=== PATIENT | male | born 1950 | race Caucasian/White ===

== ENCOUNTER 2021-08-21 07:32 | Observation (INO) ==
--- NOTE | 2021-07-07 17:37 | PAT Medication Instructions ---
Medication Instructions Date of Service July 07, 2021 Home Medications aspirin 81 mg tablet,delayed release (Adult Low Dose Aspirin) 81 mg PO QAM hydrochlorothiazide 25 mg tablet 12.5 mg PO QAM rivaroxaban 10 mg tablet (Xarelto) 10 mg PO QAM trazodone 50 mg tablet 50 mg PO HS acetaminophen 500 mg capsule 1,000 mg PO Q8H PRN gabapentin 300 mg capsule 300 mg PO UD mirtazapine 30 mg tablet 30 mg PO HS omeprazole 20 mg capsule,delayed release 20 mg PO QAM simvastatin 40 mg tablet 40 mg PO HS travoprost 0.004 % eye drops (Travatan Z) 1 drp OPB PM valsartan 80 mg capsule 80 mg PO QAM Continue as directed gabapentin 300 mg capsule 300 mg PO UD ASK your prescriber and surgeon rivaroxaban 10 mg tablet (Xarelto) 10 mg PO QAM DO NOT take the morning of surgery hydrochlorothiazide 25 mg tablet 12.5 mg PO QAM valsartan 80 mg capsule 80 mg PO QAM Take morning of surgery With a small sip of water, OTHERWISE NOTHING TO EAT OR DRINK AFTER MIDNIGHT: aspirin 81 mg tablet,delayed release (Adult Low Dose Aspirin) 81 mg PO QAM (unless surgeon directed otherwise) acetaminophen 500 mg capsule 1,000 mg PO Q8H PRN(okay to take up to 4 hours prior to surgery if needed) omeprazole 20 mg capsule,delayed release 20 mg PO QAM Take evening before surgery trazodone 50 mg tablet 50 mg PO HS acetaminophen 500 mg capsule 1,000 mg PO Q8H PRN(if needed) mirtazapine 30 mg tablet 30 mg PO HS simvastatin 40 mg tablet 40 mg PO HS travoprost 0.004 % eye drops (Travatan Z) 1 drp OPB PM Other Notes If you have any questions please call us at [phone] or [phone] or [phone] or [phone]
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
[~2021-08-21 07:32] MED LIST: ACETAMINOPHEN 500 MG TAB PO SCH; BUPIVACAINE 0.5 % 5 MG/1 ML MPF 30ML VIAL ONE; FAMOTIDINE 20 MG TAB PO SCH; GABAPENTIN 300 MG CAP PO SCH; Ketorolac (*for OR use only*) 30 MG, dexAMETHasone 4 MG, KETAMINE HCL (**OR use only) 1... INFIL SCH; LR 15ML/HR IV SCH; LR 60ML/HR IV SCH; TRANEXAMIC ACID 1,000 MG **IV Intra-op IV SCH; TRANEXAMIC ACID 1,000 MG **IV Pre-op IV SCH; ceFAZolin 2000MG 2,000 MG/15 ML SYR IV SCH; dexAMETHasone 4 MG TAB PO SCH
[2021-08-21] MEDS ORDERED: MIDAZOLAM HCL 1 MG/ML 2ML VIAL ONE (08:41)
[2021-08-21] MEDS ORDERED: KETAMINE 50 MG/5 ML SYRINGE ONE (08:41)
[2021-08-21] MEDS ORDERED: fentaNYL citrate 100 MCG/2 ML VIAL ONE (08:41)
--- NOTE | 2021-08-21 09:24 | History & Physical Bridge Note ---
Date of Service August 21, 2021 History & Physical Bridge Note I have examined the patient, reviewed the History & Physical and in the interval since the performance of the History & Physical I have noted the following changes of clinical significance: no changes noted
[2021-08-21] MEDS ORDERED: ePHEDrine sulfate 50 MG/ML AMP IV PRN (09:44)
[2021-08-21] MEDS ORDERED: ONDANSETRON INJ 2 MG/ML 2 ML VIAL IV PRN ×2 (09:44→13:38)
[2021-08-21] MEDS ORDERED: ATROPINE SULFATE 0.1 MG/ML 10ML SYR IV PRN (09:44)
[2021-08-21] MEDS ORDERED: fentaNYL citrate 100 MCG/2 ML VIAL IV PRN (09:44)
[2021-08-21] MEDS ORDERED: ORTHO JOINT ANESTHETIC ONE (10:11)
[2021-08-21] MEDS ORDERED: GLYCOPYRROLATE 0.2 MG/ML VIAL ONE (10:40)
[2021-08-21] MEDS ORDERED: ONDANSETRON INJ 2 MG/ML 2 ML VIAL ONE (10:40)
[2021-08-21] MEDS ORDERED: KETOROLAC 30 MG/ML VIAL ONE (10:40)
[2021-08-21] MEDS ORDERED: DEXAMETHASONE SOD INJ 4 MG/ML VIAL ONE (10:40)
[2021-08-21] MEDS ORDERED: LIDOCAINE 2% 2 ML VIAL/AMP(20MG/ML) INFIL ONE (10:40)
[2021-08-21] MEDS ORDERED: PROPOFOL IV EMULSION 10 MG/ML 20 ML VIAL IV ONE (10:40)
[2021-08-21] MEDS ORDERED: PHENYLEPHRINE HCL 10 MG/ML VIAL ONE (10:42)
[2021-08-21] MEDS ORDERED: PHENYLEPHRINE 100MCG/ML 5ML SYR ONE (11:21)
--- NOTE | 2021-08-21 11:47 | Operative Report ---
PG Post Operative Report Pre & Post Diagnosis Operation Date: 08/21/21 10:25 Pre-Op Diagnosis: Degenerative Joint Disease Left Shoulder with tendinopathy long head of the biceps tendon Post-Op Diagnosis: Degenerative Joint Disease Left Shoulder with tendinopathy of the long head of biceps tendon I identified the patient and participated in the time-out.: Yes Procedure Operation Date: 08/21/21 10:25 Actual Procedures p Left Reverse Total Shoulder Arthroplasty with open biceps tenodesis as a distinct and separate procedure (modifier 59) - Moises Rojas DO Surgeon Moises Rojas, Engine Repairer Moises Nguyen PAC Estimated Blood Loss 200 Findings Consistent with Post-Op Diagnosis Specimens Left humeral head Complications none Disposition Disposition: Recovery Room Indications Yovani is a pleasant 71-year-old male who is been dealing with chronic increasing left shoulder pain. X-rays and clinical examination were diagnostic for cuff arthropathy of the left shoulder. After failing conservative treatment, he elected proceed with a left reverse shoulder arthroplasty. Description of Procedure A CPT code modifier 59: The long head of the biceps tendon was enlarged and inflamed consistent with tendinopathy. A tenodesis was opted. This was a separate and distinct portion of the procedure. For these reasons, a CPT code modifier 59 will be added to this case. Implants used: I used a [employer]omet Comprehensive reverse total shoulder arthroplasty system with a size 12 press fit micro humeral stem, a standard humeral tray and a standard humeral bearing, a 25 mm small augment baseplate with a 6.5 mm central screw and superior and inferior locking screws, and a size 40 eccentric glenosphere. Yovani arrived at [facility] for the above procedure. He was seen in the preoperative holding area and the operative extremity was identified and signed. He was given a preoperative antibiotic, TXA, and an interscalene nerve block. He was taken back to the operating room, laid on table in supine position, and put under general anesthesia. He was then put into the beachchair position. The shoulder was then prepped and draped in sterile fashion. A timeout was done and the patient and the operative extremity was properly identified. A deltopectoral approach was used. Dissection was taken down through the fascia and the deltoid was retracted laterally and the conjoined tendon was retracted medially. The anterior shoulder was exposed. The biceps groove was opened up and the biceps tendon was examined extensively. The biceps tendon demonstrated enlargement and inflammatory changes consistent with longstanding inflammation in the context of osteoarthritis and cuff arthropathy. The long head of the biceps tendon was then tenodesed to the upper border of the pectoralis major. This was a separate and distinct portion of the procedure. The subscapularis was then directly released off the lesser tuberosity with a peel technique. The inferior capsule was released and the humeral head was dislocated. A canal finding reamer was sent down the center of the humeral canal. Sequential reaming up to a size 12 reamer was done. Off that reamer, a proximal humeral resection guide was placed. The proximal humerus was resected at 135 of inclination and 25 of retroversion. Osteophytes were then removed and the glenoid was exposed. Time was spent doing a complete capsular and labral release. The glenoid guide was then placed in the inferior aspect of the glenoid. A 3.2 mm Steinmann pin was then placed into the glenoid vault at 10 of inclination. The glenoid baseplate was then reamed. The final size 25 mm small augment baseplate was then impacted in the place. A 6.5 mm central screw was then placed followed by superior and inferior locking screws. A 40 eccentric glenosphere was then impacted into place. Surrounding soft tissues were then injected with 100 cc an orthopedic pain control cocktail. The proximal humerus was then exposed. Sequential broaching of the humerus up to a size 12 broach was done. Off that broach a standard humeral tray was trialed. The shoulder was then reduced, brought through a full range of motion, and felt to be stable. The shoulder was then dislocated and the broach was removed. The final size 12 micro press-fit humeral stem was then impacted into place. A standard humeral bearing was then snapped onto a standard humeral tray. The humeral tray was then impacted onto the humeral stem. The shoulder was once again reduced, brought through a full range of motion, and felt to be stable. The subscapularis was then tenodesed back to the lesser tuberosity with transosseous FiberWire sutures and side to side sutures with the arm in 45 of external rotation. A dilute betadyne lavage was then done for 3 minutes. The joint was then irrigated with normal saline solution. Hemostasis was obtained. The interval was closed with 2-0 Vicryl suture. The skin was then closed with 2-0 Vicryl and marshall. A Silverlon dressing was placed and the arm was rested in a regular arm sling. He was then extubated and transferred to a hospital bed. He taken to the postanesthesia care unit in stable condition. He tolerated the procedure well. Moises Nguyen PA-C, was present for the entire procedure. He was critical for patient positioning, prepping, draping, retraction exposure, wound closure and application of sterile dressing. I attest to the content of the Intraoperative Record and any orders documented therein. Any exceptions are noted below.
--- NOTE | 2021-08-21 12:36 | XRay Report ---
XR shoulder LT min 2V routine CLINICAL HISTORY: Post shoulder surgery. Status post shoulder replacement COMPARISON STUDY: No previous studies for comparison. TECHNIQUE: 2 left shoulder views FINDINGS: The patient is status post total shoulder replacement with humeral head and glenoid compone nts. The prosthetic components are in anatomic alignment with no acute abnormality identified. IMPRESSION: 1. Status post total shoulder replacement. ACT 112: Negative or not required by law. Electronically signed by: Dipesh Strickland M.D. 08/21/2021 12:35 PM
[2021-08-21] MEDS ORDERED: hydrALAZINE HCL 20 MG/ML VIAL IV STA (12:42)
[2021-08-21] MEDS ORDERED: hydrALAZINE HCL 20 MG/ML VIAL ONE (12:43)
--- NOTE | 2021-08-21 13:06 | Anesthesiology Progress Note ---
Date of Service August 21, 2021 Anesthesia Post Procedure Vital Signs Vital Signs: Temp Pulse Pulse Resp BP Pulse Ox 08/21/21 13:00 97.2 F L 60 16 168/87 H 97 08/21/21 12:50 60 16 182/73 H 95 08/21/21 12:40 60 12 199/108 H 96 08/21/21 12:30 82 15 190/97 H 100 08/21/21 12:20 75 16 137/87 100 08/21/21 12:10 75 19 125/83 100 08/21/21 12:04 96.8 F L 75 17 108/74 100 08/21/21 08:19 97.9 F 75 22 151/80 H 96 Transfer of Care Handoff Completed per policy Notes Mental Status: alert / awake / arousable and participated in evaluation Patient Amnestic to Procedure: Yes Nausea / Vomiting: adequately controlled Pain: adequately controlled Airway Patency, RR, SpO2: stable & adequate BP & HR: stable & adequate Hydration State: stable & adequate Anesthetic Complications: no major complications apparent and Pt Satisfied with anesthetic care
[2021-08-21] MEDS ORDERED: NALOXONE HCL 0.4 MG/1 ML VIAL/CARP IV PRN (13:38)
[2021-08-21] MEDS ORDERED: MAGNESIUM HYDROXIDE SUSP 30 ML UDC PO PRN (13:38)
[2021-08-21] MEDS ORDERED: oxyCODONE HCL IR 5 MG TAB (IMMEDIATE RELEASE) PO PRN (13:38)
[2021-08-21] MEDS ORDERED: bisacodyL 10 MG SUPP PR PRN (13:38)
[2021-08-21] MEDS ORDERED: METOCLOPRAMIDE HCL INJ 5 MG/ML 2 ML VIAL IV PRN (13:38)
[2021-08-21] MEDS ORDERED: HYDROmorphone INJ 0.5 MG/0.5 ML SYR IV PRN (13:38)
[2021-08-21] MEDS: ACETAMINOPHEN 500 MG TAB PO SCH ×2 (16:29→21:58)
[2021-08-21] MEDS: SODIUM CHLORIDE 0.9% 1000ML 1,000 ML IV SCH (16:30)
[2021-08-21] MEDS: ceFAZolin 2000MG 2,000 MG/15 ML SYR IV SCH (17:32)
[2021-08-21] MEDS ORDERED: TRAVOPROST Z 0.004% OPH SOLN 2.5 ML BTL OPB SCH (21:00)
[2021-08-21] MEDS ORDERED: traZODone HCL 50 MG TAB PO SCH (21:00)
[2021-08-21] MEDS ORDERED: MIRTAZAPINE TAB 15 MG TAB PO SCH (21:00)
[2021-08-21] MEDS ORDERED: SENNA 8.6 MG TAB PO SCH (21:00)
[2021-08-21] MEDS ORDERED: SIMVASTATIN 40 MG TAB PO SCH (21:00)
[2021-08-21] MEDS ORDERED: GABAPENTIN 300 MG CAP PO SCH (21:00)
[2021-08-21] MEDS: DOCUSATE SODIUM 100 MG CAP PO SCH (21:56)
[2021-08-22] MEDS: ceFAZolin 2000MG 2,000 MG/15 ML SYR IV SCH (02:44)
[2021-08-22] MEDS: SODIUM CHLORIDE 0.9% 1000ML 1,000 ML IV SCH (02:46)
[2021-08-22] MEDS: ACETAMINOPHEN 500 MG TAB PO SCH (05:29)
[2021-08-22 06:27] LABS: Creatinine Clr Calc Pharmacy 46.3 ml/min; Est GFR (African American) 53.6 ml/min; Est GFR (Non-African American) 46.2 ml/min
[2021-08-22] MEDS ORDERED: dexAMETHasone 4 MG TAB PO SCH (08:00)
[2021-08-22] MEDS: DOCUSATE SODIUM 100 MG CAP PO SCH (08:03)
[2021-08-22] MEDS ORDERED: PANTOprazole 40 MG TAB PO SCH (09:00)
[2021-08-22] MEDS ORDERED: MULTIVITAMIN TAB PO SCH (09:00)
[2021-08-22] MEDS ORDERED: RIVAROXABAN 10 MG TABLET PO SCH (09:00)
[2021-08-22] MEDS ORDERED: VALSARTAN 80 MG TAB PO SCH (09:00)
[2021-08-22] MEDS ORDERED: ASPIRIN 81 MG ECTAB PO SCH (09:00)
[2021-08-22] MEDS ORDERED: hydroCHLOROthiazide 25 MG TAB PO SCH (09:00)
[2021-08-22] MEDS ORDERED: GABAPENTIN 300 MG CAP PO SCH (09:00)
--- NOTE | 2021-08-22 09:00 | Orthopedic Progress Note ---
Date of Service August 22, 2021 Assessment & Plan (1) Status post reverse total replacement of left shoulder: Overall is doing fairly well. Is not having much pain in the left shoulder. He will be seen by physical therapy today for ambulation and and range of motion exercises. He can be discharged home later today. He will follow-up with orthopedics in 2 weeks. Ashley Pina was seen and examined at bedside this morning. Overall is doing very well. Is not having much pain in the left shoulder. He was able to get some sleep last night. He has no complaints. Review of Systems All systems reviewed & are unremarkable except as noted in HPI & below. Physical Exam On physical examination of the left shoulder, the dressing is clean and dry. He is wearing his sling as instructed. He has active dorsiflexion of his wrist. Results & Data Results & Data Laboratory Results . Diagnostic Findings Postoperative x-rays of the left shoulder show the prosthesis to be in anatomic alignment without any evidence of fracture, dislocation, or loosening PG Care Time/CCT Total # of Minutes Spent Total Time Spent with Patient: Total time spent is greater than 50% in coordination of care (as documented) at patient's floor/unit and/or counseling patient: Coding Level of Care Code 31566 Post Operative Follow-Up Diagnoses Status post reverse total replacement of left shoulder Z96.612
--- NOTE | 2021-08-22 09:01 | Discharge Summary ---
Date of Service August 22, 2021 Admission HPI (Per Admitting) Yovani is a pleasant 71-year-old male who is been dealing with chronic increasing left shoulder pain. 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 After failing years of conservative treatment, he elected proceed with a left reverse shoulder arthroplasty. Admission Exam (Per Admitting) On physical examination of the left shoulder, he has decreased range of motion. He has weakness throughout. He has pain over the glenohumeral joint line. Principal Diagnosis Same as "Discharge Diagnosis" noted below under Discharge Instructions. Discharge Exam On physical examination of the left shoulder, the dressing is clean and dry. He is wearing his sling as instructed. He has active dorsiflexion of his wrist. Discharge Data Procedures Performed Operation Date: 08/21/21 10:25 Actual Procedures p Left Reverse Total Shoulder Arthroplasty(Left) - Moises Rojas DO Ordered Studies 08/21/21 05:00 US - OR guided needle placemen Routine Hospital Course (1) Status post reverse total replacement of left shoulder: On August 21, 2021 Yovani arrived at [facility] and underwent a left reverse shoulder arthroplasty without complication. He had a general anesthetic and a left interscalene nerve block. Postoperatively he was placed in a sling and transferred to the general orthopedic floors. His hospital course was uneventful. On postop day #1 his vital signs were stable and his pain was well controlled. He was able to participate well with physical therapy doing ambulation and range of motion exercises. He was then discharged home. He will follow-up with orthopedics in 2 weeks. PG Care Time/CCT Total # of Minutes Spent Total Time Spent with Patient: Total time spent is greater than 50% in coordination of care (as documented) at patient's floor/unit and/or counseling patient: Discharge Plan Discharge Items Patient Disposition: Home - Home Health Services Reason For Visit: DJD Left Shoulder Discharge Diagnosis: Left reverse shoulder replacement Activity: Per Instructions section Non-emergency contact: Surgeon Call non-emergency contact if: your wound has increased redness and your wound h as increased drainage Follow-up/Referrals: Marisol Ca M.D. [Primary Care Provider] - Diet: Regular Addtl Attending Provider Instructions: Activity and Therapy Recommendations: * If you are using [facility] then therapy will be provided at your home until they feel you have accomplished all of your goals. * If you are using [facility] then Physical Therapy will be provided until they feel you are ready to start Outpatient Physical Therapy. * If you are not using home therapy then Outpatient Physical Therapy should start about 3-5 days from your day of surgery. Therapy will last about 8-12 weeks * Wear your sling for 3 weeks, unless otherwise instructed. You may remove your sling to shower and to dress, but otherwise, you should be in your sling at all times, including while sleeping * The shoulder replacement is very stable and you can use your hand while in the sling * You were shown a series of exercises in the hospital. Do these exercises daily including the exercises you were shown in physical therapy. Medications: * Narcotic You will likely be sent home from the hospital with a prescription for the narcotic pain medication that worked best throughout your stay. * Other medications may be prescribed for specific circumstances. If you have any questions, please call the office at . * Resume previous home medications unless otherwise instructed Dressing Care: Leave the Silverlon dressing in place for 7 days. After 7 days you may remove the dressing. If the incision is not draining then you may leave the marshall open to air. If there is a little bit of drainage or if the marshall are getting stuck on your clothing then cover the incision with a dry dressing. The marshall will be removed at your 2 week follow-up appointment. Showering: You may shower with the Silverlon dressing in place. Do not let the shower spray hit the dressing directly. Pat the Silverlon dressing dry. If the dressing becomes wet underneath, then simply remove the dressing. Keep the incision dry until you are 7 days out from the day of surgery. After 7 days you may remove the Silverlon dressing and shower with the marshall exposed. Let soapy water run over the marshall and pat them dry. Do not scrub or soak the incision. Things To Watch For: * Drainage from the incision site that occurs more than one week after your surgery. * Increased redness at the incision site. * Fever above 102 degrees Fahrenheit. * Unusual chest pain or shortness of breath. * Call [facility] at with any of the above problems Follow-Up Visit: Follow-up with Dr. Rojas's PA (Moises Nguyen) 2-3 weeks after your day of surgery. He will remove your marshall and answer any questions. If you have any additional questions or concerns, Dr Rojas is usually in the office at the same time and will be available An appointment was probably scheduled when you signed-up for surgery in the office. If you have any questions call More detailed instructions as well as Frequently Asked Questions were provided in a folder by our office when you signed-up for surgery. Please review these instructions when you get home. If you have any further questions or concerns, please feel free to call the office at [phone] Pending Studies at Discharge: No Stand-Alone Forms: My [facility] Medications and DC Order Prescriptions: New oxycodone-acetaminophen 5-325 mg tablet 1 tab PO Q6H PRN (Reason: pain) Qty: 30 RF: 0 Continued aspirin [Adult Low Dose Aspirin] 81 mg tablet,delayed release (DR/EC) 81 mg PO QAM RF: 0 hydrochlorothiazide 25 mg tablet 12.5 mg PO QAM RF: 0 trazodone 50 mg tablet 50 mg PO HS RF: 0 Xarelto 10 mg tablet 10 mg PO QAM RF: 0 simvastatin 40 mg Tablet 40 mg PO HS RF: 0 valsartan 80 mg Capsule 80 mg PO QAM RF: 0 gabapentin 300 mg Capsule 300 mg PO UD RF: 0 omeprazole 20 mg Capsule,Delayed Release(Dr/Ec) 20 mg PO QAM RF: 0 acetaminophen 500 mg Capsule 1,000 mg PO Q8H PRN (Reason: Pain) RF: 0 mirtazapine 30 mg Tablet 30 mg PO HS RF: 0 travoprost [Travatan Z] 0.004 % Drops 1 drp OPB PM RF: 0 Discharge Orders: Discharge Order (Routine); Ordered 08/22/21 Ordered By: Moises Rojas Admission Data Admit Date/Time: 08/21/21 12:07 Attending Provider: Moises Rojas Admit Provider: Moises Rojas Primary Care Provider: Marisol Ca
== END 2021-08-22 12:17 | disposition home health service (06) ==
LOC: 3E 07:32 → ASU 07:32

== ENCOUNTER 2022-02-19 07:56 | Observation (INO) ==
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
[~2022-02-19 07:56] MED LIST changes: -BUPIVACAINE 0.5 % 5 MG/1 ML MPF 30ML VIAL ONE; +BUPIVACAINE 0.5 % 5 MG/1 ML PF 10ML VIAL ONE; -LR 15ML/HR IV SCH; +LR 500ML BOLUS, THEN 15ML/HR IV SCH; +ROPIVACAINE 0.5% 5 MG/ML 30 ML VIAL ONE
[2022-02-19] MEDS ORDERED: fentaNYL citrate 100 MCG/2 ML VIAL ONE (09:03)
[2022-02-19] MEDS ORDERED: MIDAZOLAM HCL 1 MG/ML 2ML VIAL ONE (09:03)
--- NOTE | 2022-02-19 09:56 | History & Physical Bridge Note ---
Date of Service February 19, 2022 History & Physical Bridge Note I have examined the patient, reviewed the History & Physical and in the interval since the performance of the History & Physical I have noted the following changes of clinical significance: no changes noted
[2022-02-19] MEDS ORDERED: ONDANSETRON INJ 2 MG/ML 2 ML VIAL IV PRN ×2 (10:21→14:21)
[2022-02-19] MEDS ORDERED: fentaNYL citrate 100 MCG/2 ML VIAL IV PRN (10:21)
[2022-02-19] MEDS ORDERED: ATROPINE SULFATE 0.1 MG/ML 10ML SYR IV PRN (10:21)
[2022-02-19] MEDS ORDERED: ePHEDrine sulfate 50 MG/ML AMP IV PRN (10:21)
[2022-02-19] MEDS ORDERED: ORTHO JOINT ANESTHETIC ONE (10:27)
[2022-02-19] MEDS ORDERED: PROPOFOL IV EMULSION 10 MG/ML 20 ML VIAL IV ONE (11:47)
[2022-02-19] MEDS ORDERED: ONDANSETRON INJ 2 MG/ML 2 ML VIAL ONE (11:47)
[2022-02-19] MEDS ORDERED: LIDOCAINE 2% MPF LOCAL 5 ML VIAL INFIL ONE (11:47)
--- NOTE | 2022-02-19 12:13 | Operative Report ---
PG Post Operative Report Pre & Post Diagnosis Operation Date: 02/19/22 10:25 Pre-Op Diagnosis: Degenerative joint disease left knee. Post-Op Diagnosis: Degenerative joint disease left knee. I identified the patient and participated in the time-out.: Yes Procedure Operation Date: 02/19/22 10:25 Actual Procedures p Left Total Knee Arthroplasty(Left) - Moises Rojas DO Surgeon Moises Rojas DO Chip Machine Operator Moises Nguyen PA-C Estimated Blood Loss 100 Findings Consistent with Post-Op Diagnosis Specimens Left femoral and tibial bone Description of Procedure Implants used: I used a [employer] Person[employer] total knee arthroplasty system with a size 10 standard femur, E tibia, 34 oval patella, and a size 11 medial congruent polyethylene bearing. All components were cemented in place with Biomet cement. Yovani paco [facility] for the above procedure. He was seen in the preoperative holding area and the operative extremity was identified and signed. He was given a preoperative antibiotic, TXA, a spinal anesthetic and an adductor nerve block. He was taken back to the operating room and laid on the table in supine position. He was given basic sedation. The operative knee was then prepped and draped in sterile fashion. A timeout was done, and the patient and the operative extremity was properly identified. A midline incision was made directly over the patella. Dissection was taken down to the extensor mechanism. A subvastus arthrotomy was used. The medial retinaculum was released and the fat pad was mostly excised. The knee was flexed and the ACL, PCL, and meniscus were removed. A drill was sent down the center of the femoral canal followed by an intramedullary jeremi. Off that jeremi a distal femoral cutting block was placed. 9 mm was resected off the distal femur at 5 of valgus. A posterior referencing AP sizing guide was then placed on the distal femur. The femur measured to be a size 10 standard. 2 drill holes were placed in 3 of external rotation. A 4-in-1 cutting block was then impacted into place. Anterior, posterior, and chamfer cuts were then made. The proximal tibia was then exposed. An external tibial alignment guide was placed. A tibial cut guide was then anchored in place and the proximal tibia was then resected. The posterior aspect of the knee was then opened up and any additional meniscus fragments and osteophytes were removed. The tibia measured to be a size E. The tibial plate was then placed in the appropriate rotation and the tibia was drilled and punched. Trial components were then placed. I used a size 10 medial congruent polyethylene insert. The knee was brought through a full range of motion and felt to be stable. The peg holes for the femoral component were then drilled. The patella was then everted and 9 mm was resected off the posterior aspect of the patella. The patella measured to be a size 34 oval. 3 peg holes were then drilled. A trial patella was placed. The knee was once again brought through a full range of motion and felt to be stable. Trial components were then removed. The surrounding soft tissues were injected with 100 cc of an orthopedic pain control cocktail. All components were then cemented into place with Biomet cement. The final polyethylene insert was then snapped into place. Once cement was dry the tourniquet was deflated. Hemostasis was obtained. A dilute betadyne lavage was then done for 3 minutes. The joint was then irrigated with normal saline solution. The subvastus arthrotomy was then closed with #1 Vicryl suture. The skin was closed with 2-0 Vicryl, 3-0V lock suture, and marshall. A soft compressive dressing was placed. He was then transferred to a hospital bed and taken to the postanesthesia care unit in stable condition. He tolerated the procedure well. Moises Nguyen PA-C, was present for the entire procedure. He was critical for patient positioning, prepping, draping, retraction exposure, wound closure and application of sterile dressing. I attest to the content of the Intraoperative Record and any orders documented therein. Any exceptions are noted below.
--- NOTE | 2022-02-19 12:58 | XRay Report ---
LEFT KNEE 2 VIEWS History: Left total knee arthroplasty. Degenerative arthritis. Postop. FINDINGS: The patient is status post a left total knee arthroplasty. The hardware is intact. No fract ure or dislocation. Skin marshall are in place. IMPRESSION: Left total knee arthroplasty. No evidence for hardware complication. ACT 112: Negative or not required by law. Electronically signed by: Brien Jones M.D. 02/19/2022 12:57 PM
--- NOTE | 2022-02-19 13:39 | Anesthesiology Progress Note ---
Date of Service February 19, 2022 Anesthesia Post Procedure Vital Signs Vital Signs: Temp Pulse Pulse Resp BP BP Pulse Ox 02/19/22 13:10 65 15 120/59 L 93 02/19/22 13:00 61 12 120/67 100 02/19/22 12:50 74 15 125/75 100 02/19/22 12:42 97.7 F 79 16 129/57 L 100 02/19/22 08:21 97.5 F L 67 20 109/77 98 O2 Del Method O2 Flow Rate 02/19/22 13:10 Room Air 02/19/22 13:00 Oxymask 4 02/19/22 12:50 Oxymask 4 02/19/22 12:42 Oxymask 6 02/19/22 08:21 Room Air Transfer of Care Handoff Completed per policy Notes Mental Status: alert / awake / arousable and participated in evaluation Patient Amnestic to Procedure: Yes Nausea / Vomiting: adequately controlled Pain: adequately controlled Airway Patency, RR, SpO2: stable & adequate BP & HR: stable & adequate Hydration State: stable & adequate Neuraxial Anesthesia: was administered and sensory block is resolving Anesthetic Complications: no major complications apparent and Pt Satisfied with anesthetic care
[2022-02-19] MEDS ORDERED: oxyCODONE HCL IR 5 MG TAB (IMMEDIATE RELEASE) PO PRN (14:21)
[2022-02-19] MEDS ORDERED: NALOXONE HCL 0.4 MG/1 ML VIAL/CARP IV PRN (14:21)
[2022-02-19] MEDS ORDERED: CLINDAMYCIN HCL 150 MG CAP PO SCH (14:21)
[2022-02-19] MEDS ORDERED: MAGNESIUM HYDROXIDE SUSP 30 ML UDC PO PRN (14:21)
[2022-02-19] MEDS ORDERED: HYDROmorphone INJ 0.5 MG/0.5 ML SYR IV PRN (14:21)
[2022-02-19] MEDS ORDERED: bisacodyL 10 MG SUPP PR PRN (14:21)
[2022-02-19] MEDS ORDERED: METOCLOPRAMIDE HCL INJ 5 MG/ML 2 ML VIAL IV PRN (14:21)
[2022-02-19] MEDS: SODIUM CHLORIDE 0.9% 1000ML 1,000 ML IV SCH (15:24)
[2022-02-19] MEDS: KETOROLAC TROMETHAMINE 15 MG/ML VIAL IV SCH ×2 (16:41→20:52)
[2022-02-19] MEDS: ACETAMINOPHEN 500 MG TAB PO SCH ×2 (16:41→20:51)
[2022-02-19] MEDS: ceFAZolin 2000MG 2,000 MG/15 ML SYR IV SCH (17:45)
[2022-02-19] MEDS: DOCUSATE SODIUM 100 MG CAP PO SCH (20:51)
[2022-02-19] MEDS ORDERED: SENNA 8.6 MG TAB PO SCH (21:00)
[2022-02-19] MEDS ORDERED: TRAVOPROST Z 0.004% OPH SOLN 2.5 ML BTL OPB SCH (21:00)
[2022-02-19] MEDS ORDERED: traZODone HCL 50 MG TAB PO SCH (21:00)
[2022-02-19] MEDS ORDERED: MIRTAZAPINE TAB 15 MG TAB PO SCH (21:00)
[2022-02-19] MEDS ORDERED: GABAPENTIN 600 MG TAB PO SCH (21:00)
[2022-02-19] MEDS ORDERED: SIMVASTATIN 40 MG TAB PO SCH (21:00)
[2022-02-20] MEDS: SODIUM CHLORIDE 0.9% 1000ML 1,000 ML IV SCH (01:07)
[2022-02-20] MEDS: KETOROLAC TROMETHAMINE 15 MG/ML VIAL IV SCH ×2 (03:30→10:02)
[2022-02-20] MEDS: ceFAZolin 2000MG 2,000 MG/15 ML SYR IV SCH (03:30)
[2022-02-20] MEDS: ACETAMINOPHEN 500 MG TAB PO SCH (05:57)
[2022-02-20] MEDS ORDERED: dexAMETHasone 4 MG TAB PO SCH (08:00)
--- NOTE | 2022-02-20 08:51 | Orthopedic Progress Note ---
Date of Service February 20, 2022 Assessment & Plan (1) Status post left knee replacement: Overall he is doing very well. He is not having much pain in the left knee. He will be seen by physical therapy today for ambulation and range of motion exercises. He is on Xarelto for DVT prophylaxis. He can be discharged home later today. He will follow-up with orthopedics in 2 weeks. Ashley Pina was seen and examined at bedside this morning. Overall is doing fairly well. Is not have any pain in the left knee. He has been up and ambulating to the bathroom. He has no complaints.. Review of Systems All systems reviewed & are unremarkable except as noted in HPI & below. Physical Exam On physical examination of the left knee, the dressing is clean and dry. His leg is out in full extension. He has active dorsiflexion and plantarflexion of the left ankle.. Results & Data Results & Data Laboratory Results . Diagnostic Findings Postoperative x-rays of the left knee show the prosthesis to be in anatomic alignment without any evidence of fracture, dislocation, or loosening.. PG Care Time/CCT Total # of Minutes Spent Total Time Spent with Patient: Total time spent is greater than 50% in coordination of care (as documented) at patient's floor/unit and/or counseling patient: Coding Level of Care Code 29221 Post Operative Follow-Up Diagnoses Status post left knee replacement Z96.652
--- NOTE | 2022-02-20 08:52 | Discharge Summary ---
Date of Service February 20, 2022 Admission HPI (Per Admitting) Yovani is a pleasant 71-year-old male who I did a shoulder replacement on recently. He has done well with that. Unfortunately, he has been dealing with chronic left knee pain. X-rays and clinical examination have been diagnostic for advanced arthritis of the left knee. After failing years of conservative treatment, he has elected to proceed with a left total knee arthroplasty. . Admission Exam (Per Admitting) On physical examination of the left knee, he has range of motion of 5 to 115 degrees. He has no instability. He has pain of the distal medial femoral condyles and over the medial joint lines.. Principal Diagnosis Same as "Discharge Diagnosis" noted below under Discharge Instructions. Discharge Exam On physical examination of the left knee, the dressing is clean and dry. His leg is out in full extension. He has active dorsiflexion and plantarflexion of the left ankle.. Discharge Data Procedures Performed Operation Date: 02/19/22 10:25 Actual Procedures p Left Total Knee Arthroplasty(Left) - Moises Rojas DO Ordered Studies 02/19/22 10:37 US - OR guided needle placemen Routine Hospital Course (1) Status post left knee replacement: On February 19, 2022 Yovani arrived at [facility] and underwent a left knee replacement without complication. He had a spinal anesthetic. Postoperatively he was started on Xarelto for DVT prophylaxis and transferred to the general orthopedic floors. His hospital course was uneventful. On postop day #1, his vital signs were stable and his pain was well controlled. He was able to participate well with physical therapy doing ambulation and range of motion exercises. He was then discharged home. He will follow-up with orthopedics in 2 weeks. PG Care Time/CCT Total # of Minutes Spent Total Time Spent with Patient: Total time spent is greater than 50% in coordination of care (as documented) at patient's floor/unit and/or counseling patient: Discharge Plan Discharge Items Patient Disposition: Home - Home Health Services Reason For Visit: DJD Left Knee Discharge Diagnosis: Left knee replacement Activity: Per Instructions section Non-emergency contact: Surgeon Call non-emergency contact if: your wound has increased redness and your wound has increased drainage Follow-up/Referrals: Marisol Ca M.D. [Primary Care Provider] - Diet: Regular Addtl Attending Provider Instructions: Activity and Therapy Recommendations: * If you are using [facility] then therapy will be provided at your home until they feel you have accomplished all of your goals. * If you are using [facility] then Physical Therapy will be provided until they feel you are ready to start Outpatient Physical Therapy. * If you are not using home therapy then Outpatient Physical Therapy should start about 3-5 days from your day of surgery. Therapy will last about 6-10 weeks * It is important not to put a pillow under your knee when you are relaxing or sleeping. It is just as important to make sure you are getting your knee perfectly straight as it is to regain your knee bend. * You were shown a series of exercises in the hospital. Do these exercises three times each day including the exercises you were shown in physical therapy. * Get up and walk several times each day. For the first four weeks, try not to stand or walk for more than one hour at a time. If you do stand or walk for more than one hour, you will not hurt anything, but your leg will likely swell. * As you feel comfortable, you may change from the walker or crutches to a cane and then to independent walking. Medications: * Narcotic You will likely be sent home from the hospital with a prescription for the narcotic pain medication that worked best throughout your stay. * Aspirin Most patients will be required to take Aspirin 81mg twice a day for 6 weeks after surgery. This is obtained [id number] and a prescription is not necessary. * Other medications may be prescribed for specific circumstances. If you have any questions, please call the office at . * Resume previous home medications unless otherwise instructed TEDs/Elastic Stockings: The white elastic stockings help limit swelling and prevent blood clots from forming in your legs.~ The more you wear them, the more they work. Wear them for six weeks. Dressing Care: The dressing can be changed after physical therapy on postop day #1. Daily dry dressing changes for a few days, especially if the incision is still draining some. If the incision is not draining then you may leave the marshall open to air. If there is a little bit of drainage or if the marshall are getting stuck on your clothing then cover the incision with a dry dressing. The marshall will be removed at your 2 week follow-up appointment. Showering: You may shower 5 days from the day of surgery as long as the incision is no longer draining. You may shower with the marshall exposed. Let soapy water run over the marshall and pat them dry. Do not scrub or soak the incision. Things To Watch For: * Drainage from the incision site that occurs more than one week after your surgery. * Increased redness at the incision site. * Fever above 102 degrees Fahrenheit. * Unusual chest pain or shortness of breath. * Call [facility] at with any of the above problems Follow-Up Visit: Follow-up with Dr. Rojas's PA (Moises Nguyen) 2-3 weeks after your day of surgery. He will remove your marshall and answer any questions. If you have any additional questions or concerns, Dr Rojas is usually in the office at the same time and will be available An appointment was probably scheduled when you signed-up for surgery in the office. If you have any questions call Office Instructions: More detailed instructions as well as Frequently Asked Questions were provided in a folder by our office when you signed-up for surgery. Please review these instructions when you get home. If you have any further questions or concerns, please feel free to call the office at [phone] Pending Studies at Discharge: No Stand-Alone Forms: My [facility] Medications and DC Order Prescriptions: Continued aspirin [Adult Low Dose Aspirin] 81 mg tablet,delayed release (DR/EC) 81 mg PO QAM hydrochlorothiazide 25 mg tablet 12.5 mg PO QAM trazodone 50 mg tablet 50 mg PO HS Xarelto 10 mg tablet 10 mg PO QAM clindamycin HCl 300 mg capsule 600 mg PO ONCE Qty: 2 2RF oxycodone-acetaminophen 5-325 mg tablet 1 tab PO Q6H PRN (Reason: pain) Qty: 30 0RF simvastatin 40 mg Tablet 40 mg PO HS valsartan 80 mg Capsule 80 mg PO QAM gabapentin 300 mg Capsule 300 mg PO UD Label Comments: TAKES 2 CAP QAM/ TAKES 4 CAP QPM omeprazole 20 mg Capsule,Delayed Release(Dr/Ec) 20 mg PO QAM acetaminophen 500 mg Capsule 1,000 mg PO Q8H PRN (Reason: Pain) mirtazapine 30 mg Tablet 30 mg PO HS travoprost [Travatan Z] 0.004 % Drops 1 drp OPB PM Discharge Orders: Discharge Order (Routine); Ordered 02/20/22 Ordered By: Moises Rojas Admission Data Admit Date/Time: 02/19/22 12:44 Attending Provider: Moises Rojas Admit Provider: Moises Rojas Primary Care Provider: Marisol Ca
[2022-02-20] MEDS: DOCUSATE SODIUM 100 MG CAP PO SCH (08:55)
[2022-02-20] MEDS ORDERED: MULTIVITAMIN TAB PO SCH (09:00)
[2022-02-20] MEDS ORDERED: hydroCHLOROthiazide 25 MG TAB PO SCH (09:00)
[2022-02-20] MEDS ORDERED: RIVAROXABAN 10 MG TABLET PO SCH (09:00)
[2022-02-20] MEDS ORDERED: VALSARTAN 80 MG TAB PO SCH (09:00)
[2022-02-20] MEDS ORDERED: PANTOprazole 40 MG TAB PO SCH (09:00)
[2022-02-20] MEDS ORDERED: GABAPENTIN 600 MG TAB PO SCH (09:00)
== END 2022-02-20 14:15 | disposition home health service (06) ==
LOC: 3E 07:56 → ASU 07:56